=== PATIENT | female | born 2000 | race American Indian/Alaskan Native ===

== ENCOUNTER 2021-06-07 21:05 | Emergency (ER) | payer SELFPAY ==
[2021-06-07] MEDS ORDERED: FLUCONAZOLE 200 MG TAB PO ONE (21:56)
[2021-06-07] MEDS ORDERED: AZITHROMYCIN 250 MG TAB PO ONE (21:56)
[2021-06-07] MEDS ORDERED: ONDANSETRON 4 MG ODT TAB PO ONE (21:56)
[2021-06-07] MEDS ORDERED: metroNIDAZOLE 500 MG TAB PO ONE (21:56)
[2021-06-07] MEDS ORDERED: LIDOCAINE-MPF (1%) 10 MG/1 ML VIAL 5 ML INFILTRATI ONE (21:56)
--- NOTE | 2021-06-08 00:14 | Emergency Department Report ---
ED Female HPI - General Chief complaint: Urogenital-Female Stated complaint: VAGINAL DISCHARGE Time Seen by Provider: 06/07/21 21:42 Source: patient Mode of arrival: Ambulatory Limitations: No Limitations - History of Present Illness Initial comments: Chief complaint: I have discharged HPI: This 21-year-old female without significant medical history presents with vaginal discharge for 5 days. Malodorous watery. No sexual exposure. She denies fever abdominal pain she denies back pain she denies dysuria. MD Complaint: vaginal discharge -: Gradual, days(s) (5 days) Severity: mild Consistency: constant Improves with: none Worsens with: none Are you Now?: No Associated Symptoms: denies other symptoms - Related Data Allergies Allergy/AdvReac Type Severity Reaction Status Date / Time No Known Allergies Allergy Verified 06/07/21 21:24 ED Review of Systems ROS: Stated complaint: VAGINAL DISCHARGE Other details as noted in HPI Comment: All other systems reviewed and negative Constitutional: denies: fever, malaise Respiratory: denies: cough Cardiovascular: denies: chest pain Gastrointestinal: denies: abdominal pain, nausea, vomiting ED Past Medical Hx - Past Medical History Previous Medical History?: No - Surgical History Past Surgical History?: No - Social History Smoking Status: Never Smoker Substance Use Type: None ED Physical Exam - General Limitations: No Limitations General appearance: alert, in no apparent distress - Head Head exam: Present: atraumatic, normocephalic - Eye Eye exam: Present: normal appearance - ENT ENT exam: Present: mucous membranes moist - Neck Neck exam: Present: normal inspection, full ROM - Respiratory Respiratory exam: Present: respiratory distress. Absent: wheezes, rales, rhonchi, stridor - Cardiovascular Cardiovascular Exam: Present: regular rate. Absent: normal heart sounds, systolic murmur, diastolic murmur, rubs, gallop - GI/Abdominal GI/Abdominal exam: Present: soft, normal bowel sounds. Absent: distended, tenderness, guarding, rebound - Extremities Exam Extremities exam: Present: normal inspection - Back Exam Back exam: Present: normal inspection - Neurological Exam Neurological exam: Present: alert, oriented X3 - Psychiatric Psychiatric exam: Present: normal affect, normal mood - Skin Skin exam: Present: warm, dry, intact, normal color. Absent: rash ED Course Vital Signs 06/07/21 06/07/21 21:19 22:22 Temperature 97.3 F L 97.7 F Pulse Rate 86 69 Respiratory 17 12 Rate Blood Pressure 104/68 112/74 [Right] O2 Sat by Pulse 100 99 Oximetry ED Medical Decision Making - Medical Decision Making Vaginitis differential includes candidal, bacterial vaginosis, cervicitis. Patient received ceftriaxone for gonorrhea treatment, azithromycin for chlamydia treatment. She also received fluconazole metronidazole for candidal Dr. Vaginosis and trichomonas. Referred to [facility] as necessary Critical care attestation.: If time is entered above; I have spent that time in minutes in the direct care of this critically ill patient, excluding procedure time. ED Disposition Clinical Impression: Vaginitis Disposition: HOME / SELF CARE / HOMELESS Is pt being admited?: No Does the pt Need Aspirin: No Condition: Stable Instructions: Vaginitis, [id number] Referrals: [facility] [Provider Group] - 3-5 Days
[2021-06-08 00:45] VITALS: BP 120/76
== END 2021-06-08 00:30 | disposition home or self-care (01) ==
LOC: ED 21:05
DX: N76.0 Acute vaginitis (principal)
CPT/HCPCS: 96372; 99282; J0696; J3490; Q0162